=== PATIENT | female | born 1970 | race Caucasian/White ===

== ENCOUNTER 2024-10-17 11:51 | Outpatient (CLI) | payer OTHER | END 2024-10-17 11:52 | disposition home or self-care (01) | LOC: SCSRAD 11:51 | PROVIDERS: ATTEND Student in an Organized Health Care Education/Training Program | DX: M25.562 Pain in left knee (principal); M17.12 Unilateral primary osteoarthritis, left knee ==

== ENCOUNTER 2024-12-15 10:31 | Outpatient (CLI) | payer OTHER | END 2024-12-15 10:32 | disposition home or self-care (01) | LOC: SCSMRI 10:31 | PROVIDERS: ATTEND Orthopaedic Surgery | DX: S83.242A Other tear of medial meniscus, current injury, left knee, initial encounter (principal); M23.92 Unspecified internal derangement of left knee; R60.0 Localized edema; M22.42 Chondromalacia patellae, left knee ==